=== PATIENT | male | born 1965 | race Caucasian/White ===

== ENCOUNTER 2020-09-14 09:26 | Emergency (ER) | payer SELFPAY ==
[~2020-09-14] VITALS: Ht 170.2 cm; Wt 73.0 kg
[2020-09-14 09:28] VITALS: BP 140/78
== END 2020-09-14 21:13 | disposition left against medical advice (07) ==
LOC: ER 09:38
DX: Z53.21 Procedure and treatment not carried out due to patient leaving prior to being seen by health care provider (principal)
CPT/HCPCS: 93005